=== PATIENT | female | born 1990 | race Caucasian/White ===

== ENCOUNTER 2021-05-17 23:55 | Emergency (ER) | payer SELFPAY ==
[~2021-05-17] VITALS: Ht 172.7 cm; Wt 130.0 kg
[2021-05-18] MEDS ORDERED: LIDOCAINE/EPI/TETRACAINE TOPICAL GEL 3 ML. TP ONE ×3 (00:02→00:30)
[2021-05-18 00:06] VITALS: BP 139/86
--- NOTE | 2021-05-18 00:09 | PHYS DOC ---
Past History Past Medical History: Hypothyroid Past Surgical History: Alcohol Use: None Drug Use: None Adult General HPI HPI Patient is an otherwise healthy 30-year-old female up-to-date on tetanus who presents for chief complaint of laceration to the middle of the front left leg after tripping while walking upstairs and hitting her young on the corner of the stair. Denies any other injuries. Denies any trouble sitting, standing or walking. States he does not really hurt. Review of Systems Review of Systems Review of systems otherwise unremarkable except noted in HPI Current Medications Current Medications Current Medications Medications (Trade) Dose Ordered Sig/Naeem Start Time Stop Time Status Last Admin Dose Admin Lidocaine/ Epinephrine (Let (Iyiu-Nennfjl-Scrdi) Gel) 3 ml STK-MED ONCE 05/18/21 00:02 05/18/21 00:02 DC Physical Exam Physical Exam Constitutional: Well developed, well nourished, no acute distress, non-toxic appearance. [] HENT: Normocephalic, atraumatic, Skin: Warm, dry, no erythema, no rash. [] Back: No tenderness, Extremities: Has an approximately 5 cm linear laceration horizontally across the middle anterior left lower leg, bleeding controlled, neurovascular exam intact Neurologic: Alert and oriented X 3, normal motor function, normal sensory function, no focal deficits noted. [] Psychologic: Affect normal, judgement normal, mood normal. [] EKG EKG [] Radiology/Procedures Radiology/Procedures 5 cm linear laceration cleaned extensively with sterile water. L ET placed for topical anesthesia. Anesthesia achieved. 5 sutures of 3-0 Ethilon placed without complication. Cleaned and bandaged. Patient tolerated well. [] Heart Score C/O Chest Pain: No Risk Factors: Risk Factors: DM, Current or recent (<one month) smoker, HTN, HLP, family history of CAD, obesity. Risk Scores: Risk Factors: DM, Current or recent (<one month) smoker, HTN, HLP, family history of CAD, obesity. Course & Med Decision Making Course & Med Decision Making Patient is a 30-year-old female presents with laceration to left lower leg Vital signs not concerning. Physical exam noted above. Patient denies need for pain medicine. Wound extensively cleaned. L ET placed for topical anesthesia. Repaired with suture. Bandaged. Given wound care instructions. Advised to follow-up with primary care physician in 7 to 10 days for wound check and suture removal. Gave return precautions to the ED. Patient grateful, verbalized understanding agree with plan of discharge. [] Dragon Disclaimer Dragon Disclaimer This electronic medical record was generated, in whole or in part, using a voice recognition dictation system. Departure Departure: Impression: Primary Impression: Laceration Disposition: HOME / SELF CARE / HOMELESS Condition: GOOD Referrals: BILL WHITESIDE MD (PCP) Patient Instructions: Laceration Care, Adult Additional Instructions: Thank you for coming into the emergency department tonight and allowing us to take care of you. Please read the attached information carefully to go back over some of the things we discussed. You can use Tylenol, ibuprofen and ice as needed at home for pain control. It is very important to keep the area clean, dry and bandaged. Please follow-up with your primary care physician in approximately 7 days for a wound check and suture removal. Please do not go any longer than 10 days. Please come back with new or concerning symptoms as we discussed. KYRA WEEMS MD May 18, 2021 00:09
--- NOTE | 2021-05-18 01:20 | RAD ---
XR LT TIBIA + FIBULA History: fall Comparison: None. Technique: AP and lateral views of the tibia and fibula Findings: Osseous mineralization is normal. No acute fracture or dislocaton. There is soft tissue swelling ante rior tibia with multiple lucent foci which may represent subcutaneous air. Anterior tibial skin defec t consistent with laceration. Impression: 1. No acute osseous abnormality left tibia and fibula. Anterior tibial soft tissue injury with subcu taneous air and skin laceration. Electronically signed by: Bakari Limon MD (05/18/2021 1:18 AM) [facility]
[2021-05-18] MEDS ORDERED: DIPH,PERTUSS(ACELL),TET VAC/PF 0.5 ML SYRINGE. VAX IM ONE (01:30)
== END 2021-05-18 01:34 | disposition home or self-care (01) ==
LOC: ER 23:55
DX: S81.812A Laceration without foreign body, left lower leg, initial encounter (principal); E03.9 Hypothyroidism, unspecified; W18.49XA Other slipping, tripping and stumbling without falling, initial encounter; Y93.01 Activity, walking, marching and hiking; Y92.89 Other specified places as the place of occurrence of the external cause; Y99.8 Other external cause status
CPT/HCPCS: 12002; 73590; 90471; 90715; 99283